=== PATIENT | male | born 1985 | race Caucasian/White ===

== ENCOUNTER 2020-03-21 21:44 | Emergency (ER) | payer OTHER ==
[~2020-03-21] VITALS: Ht 170.2 cm; Wt 86.2 kg
[~2020-03-21 21:44] MED LIST: HYDROCODON-ACE1 EAC8 PO; ZOFRAN ODT4 MG PO
[2020-03-21] MEDS ORDERED: PROTONIX40 MG PO (22:16)
== END 2020-03-21 22:26 | disposition home or self-care (01) ==
LOC: ED 21:44
DX: K29.00 Acute gastritis without bleeding (principal); Z87.891 Personal history of nicotine dependence
CPT/HCPCS: 99283

== ENCOUNTER 2020-10-12 19:43 | Emergency (ER) | payer OTHER ==
[~2020-10-12] VITALS: Ht 170.2 cm; Wt 86.2 kg
[~2020-10-12 19:43] MED LIST changes: +PROTONIX40 MG PO
[2020-10-12] MEDS ORDERED: CYCLOBENZAPRINE10 MG PO (20:28)
== END 2020-10-12 20:41 | disposition home or self-care (01) ==
LOC: ED 19:43
DX: M54.5 Low back pain (principal); Z87.891 Personal history of nicotine dependence
CPT/HCPCS: 72100; 99283-25

== ENCOUNTER 2022-01-21 14:12 | Emergency (ER) | payer OTHER ==
[~2022-01-21] VITALS: Ht 170.2 cm; Wt 99.8 kg
[~2022-01-21 14:12] MED LIST changes: +CYCLOBENZAPRINE10 MG PO
--- NOTE | 2022-01-22 13:58 | EKG ---
[facility] [address] [facility] [place], [place] [address] Signed Normal sinus rhythm Normal ECG No previous ECGs available Confirmed by YOEL PENALOZA MD ([id number] on 01/22/2022 1:58:05 PM Electronically Signed By: YOEL PENALOZA MD 01/22/22 1358 PATIENT NAME: ZA CISNEROS Edy Electrocardiogram DATE OF : 87 PHYSICIAN: YOEL PENALOZA MD REPORT #: [id number] REPORT IS CONFIDENTIAL AND NOT TO BE RELEASED WITHOUT AUTHORIZATION
== END 2022-01-21 18:05 | disposition home or self-care (01) ==
LOC: ED 14:12
DX: M54.12 Radiculopathy, cervical region (principal); Z87.891 Personal history of nicotine dependence
CPT/HCPCS: 93005; 93010; 99284-25